=== PATIENT | female | born 1940 | race Two or more races ===

== ENCOUNTER 2019-06-24 19:06 | Emergency (ER) | payer MEDICAID, MEDICARE ==
[~2019-06-24] VITALS: Ht 152.4 cm; Wt 72.6 kg
[2019-06-24] MEDS ORDERED: ALBUTEROL SULF 2.5 MG/0.5ML(0.5%) NEB SOLN HHN STA ×2 (19:25→23:11)
[2019-06-24] MEDS ORDERED: IPRATROPIUM BROM 0.5 MG/2.5ML INH SOL NEB ONE ×2 (19:30→23:15)
[2019-06-24 23:34] LABS: Basophils # (auto) 0.1 uL; Basophils % (auto) 1.2 % (0.0-2.0); Eosinophils # (auto) 0.7 uL; Eosinophils % (auto) 11.1 % (0.0-7.0); Hematocrit 42.2 % (36.0-46.0); Hemoglobin 13.9 g/dL (12.2-16.2); Lymphocytes # (auto) 2.6 uL; Lymphocytes % (auto) 42.1 % (10.0-50.0); Mean Corpuscular Hemoglobin 29.3 pg (28.0-32.0); Mean Corpuscular Hgb Conc. 33.1 g/dL (32.0-36.0); Mean Corpuscular Volume 88.5 fL (80.0-100.0); Monocytes # (auto) 0.6 uL; Monocytes % (auto) 10.2 % (0.0-12.0); Neutrophils # (auto) 2.2 uL; Neutrophils % (auto) 35.4 % (37.0-80.0); Nucleated Red Blood Cells % 0.1 %; Platelet Count (auto) 248 10^3/uL (140-450); Red Blood Cells 4.77 10^6/uL (4.0-5.20); Red Cell Distribution Width 14.1 % (11.8-14.3); White Blood Cell 6.2 10^3/uL (4.4-10.8)
[2019-06-24] MEDS ORDERED: methylPREDNISolone SOD SUCC 125 MG/2 ML VL IV ONE (23:45)
[2019-06-24 23:50] LABS: INR 1.04 (0.9-1.15); Partial Thromboplastin Time 39.3 sec (23.64-32.05)
[2019-06-24 23:57] LABS: Albumin 3.5 g/dL (3.4-5.0); Anion Gap 7 (5-15); Blood Urea Nitrogen 18 mg/dL (7-18); Calcium 8.9 mg/dL (8.5-10.1); Carbon Dioxide 26 mmol/L (21-32); Chloride 109 mmol/L (98-107); Glucose 100 mg/dL (74-106); Potassium 3.8 mmol/L (3.5-5.1); Sodium 142 mmol/L (136-145)
[2019-06-24 23:59] LABS: Alanine Aminotransferase 23 U/L (13-56); Aspartate Aminotransferase 21 U/L (15-37); GFR African American 96 mL/min; GFR Non-African American 80 mL/min
[2019-06-25 00:03] LABS: Alkaline Phosphatase 68 U/L (45-117); Bilirubin, Total 0.3 mg/dL (0.2-1.0); Total Protein 6.9 g/dL (6.4-8.2)
[2019-06-25] MEDS ORDERED: IOHEXOL 350 MG/ML 100ML IJ ONE (02:08)
[2019-06-25 03:17] VITALS: BP 135/63
== END 2019-06-25 03:47 | disposition home or self-care (01) ==
LOC: ER 19:06 → MERGE 19:06 → ER 06-25 03:47
DX: J44.1 Chronic obstructive pulmonary disease with (acute) exacerbation (principal); J01.00 Acute maxillary sinusitis, unspecified
CPT/HCPCS: 36415; 71046; 71275; 80053; 83880; 84484; 85025; 85379; 85610; 85730; 93005; 94640; 96374; 99284; J2930; J7611; J7644; Q9967

== ENCOUNTER 2019-09-01 19:42 | Inpatient (IN) | payer MEDICAID ==
[~2019-09-01] VITALS: Ht 154.9 cm; Wt 75.2 kg
[2019-09-01] MEDS ORDERED: ETOMIDATE (2MG/ML) 20ML VIAL IV ONE (20:23)
[2019-09-01] MEDS ORDERED: SUCCINYLCHOLINE CHLORIDE 20 MG/ML 10ML VIAL IV ONE (20:23)
[2019-09-01] MEDS ORDERED: FUROSEMIDE 40 MG/4 ML VIAL IV ONE (20:30)
[2019-09-01] MEDS ORDERED: ONDANSETRON HCL 4 MG/2 ML VIAL IV ONE (20:30)
[2019-09-01 20:41] LABS: Basophils # (auto) 0 uL; Basophils % (auto) 0.5 % (0.0-2.0); Eosinophils # (auto) 0.2 uL; Eosinophils % (auto) 2.5 % (0.0-7.0); Hematocrit 49.7 % (36.0-46.0); Hemoglobin 16.3 g/dL (12.2-16.2); Lymphocytes # (auto) 1.1 uL; Lymphocytes % (auto) 13.6 % (10.0-50.0); Mean Corpuscular Hemoglobin 29.1 pg (28.0-32.0); Mean Corpuscular Hgb Conc. 32.9 g/dL (32.0-36.0); Mean Corpuscular Volume 88.6 fL (80.0-100.0); Monocytes # (auto) 0.7 uL; Monocytes % (auto) 8.7 % (0.0-12.0); Neutrophils # (auto) 6.1 uL; Neutrophils % (auto) 74.7 % (37.0-80.0); Nucleated Red Blood Cells % 0.1 %; Platelet Count (auto) 290 10^3/uL (140-450); White Blood Cell 8.2 10^3/uL (4.4-10.8)
[2019-09-01 20:48] LABS: INR 1.02 (0.9-1.15); Partial Thromboplastin Time 37.7 sec (23.64-32.05)
[2019-09-01 20:54] LABS: Alanine Aminotransferase 21 U/L (13-56); Albumin 3.5 g/dL (3.4-5.0); Anion Gap 7 (5-15); Aspartate Aminotransferase 20 U/L (15-37); Blood Urea Nitrogen 20 mg/dL (7-18); Calcium 9.1 mg/dL (8.5-10.1); Carbon Dioxide 27 mmol/L (21-32); Chloride 107 mmol/L (98-107); GFR African American 81 mL/min; GFR Non-African American 67 mL/min; Glucose 119 mg/dL (74-106); Potassium 3.8 mmol/L (3.5-5.1); Sodium 141 mmol/L (136-145); Total Protein 6.7 g/dL (6.4-8.2)
[2019-09-01 20:56] LABS: Alkaline Phosphatase 63 U/L (45-117); Bilirubin, Total 0.3 mg/dL (0.2-1.0)
[2019-09-01] MEDS ORDERED: ALBUTEROL SULF 2.5 MG/0.5ML(0.5%) NEB SOLN NEB PRN (21:30)
[2019-09-01] MEDS ORDERED: cloNIDine HCL 0.1 MG TAB PO PRN (21:30)
[2019-09-01] MEDS ORDERED: NITROGLYCERIN 0.4 MG SL TAB SL PRN (21:30)
[2019-09-01] MEDS ORDERED: MORPHINE SULF INJ 2 MG/ML SYRINGE 1ML IV PRN (21:30)
[2019-09-01] MEDS ORDERED: TEMAZEPAM 15 MG CAP PO PRN (21:30)
[2019-09-01] MEDS ORDERED: ONDANSETRON HCL 4 MG/2 ML VIAL IV PRN (21:30)
[2019-09-01] MEDS ORDERED: ACETAMINOPHEN 325 MG TAB PO PRN (21:30)
[2019-09-01] MEDS: CARVEDILOL 3.125 MG TAB PO SCH (23:11)
[2019-09-01] MEDS: FAMOTIDINE 20 MG TAB PO SCH (23:12)
[2019-09-01] MEDS ORDERED: diphenhdrAMINE HCL 50 MG/1 ML VL IV ONE (23:30)
[2019-09-02] VITALS (8 sets, daily range): BP systolic 93–129; BP diastolic 47–73
[2019-09-02 00:31] LABS: Urine Bacteria FEW /hpf (None Seen); Urine Blood 1+ /uL (Negative); Urine Hyaline Cast FEW /lpf (0 - 2); Urine Mucus FEW (None Seen); Urine Specific Gravity 1.025 (1.001-1.035)
--- NOTE | 2019-09-02 00:33 | NUR ---
Telemetry admit from ER BEBETO MEIER V admitted to Telemetry unit after SBAR received. Patient oriented to CEFERINO RUIZ RN primary RN, unit, room, bed, and unit policies regarding patient care and visiting hours. Patient now on continuous telemetry monitoring, tele box #63 and telemetry reading on arrival to unit is NSR. Patient placed on bedside oxygen, weighed by bedscale and encouraged to call if they need something. All questions and concerns addressed, patient verbalized understanding. Note: BED ALARM IS ON AND CALL [facility]DEL[facility] WITHIN REACH.
[2019-09-02 00:34] LABS: Urine WBC 4 /hpf (0 - 5)
--- NOTE | 2019-09-02 00:59 | NUR ---
CALLED ED TO FIND OUT REGARDING PATIENT'S BAG OF MEDICATION, PER ED RN, NO BAG OF MEDICATION WAS SEEN. WILL CALL THE FLOOR IF PATIENT'S BAG IS FOUND.
[2019-09-02 05:53] LABS: Basophils # (auto) 0 uL; Basophils % (auto) 0.5 % (0.0-2.0); Eosinophils # (auto) 0.3 uL; Eosinophils % (auto) 4.4 % (0.0-7.0); Hematocrit 46.9 % (36.0-46.0); Hemoglobin 15.5 g/dL (12.2-16.2); Lymphocytes # (auto) 0.8 uL; Lymphocytes % (auto) 13.2 % (10.0-50.0); Mean Corpuscular Hemoglobin 29.2 pg (28.0-32.0); Mean Corpuscular Volume 88.4 fL (80.0-100.0); Monocytes # (auto) 0.7 uL; Monocytes % (auto) 12.6 % (0.0-12.0); Neutrophils % (auto) 69.3 % (37.0-80.0); Nucleated Red Blood Cells % 0.1 %; Platelet Count (auto) 280 10^3/uL (140-450); Red Blood Cells 5.31 10^6/uL (4.0-5.20); Red Cell Distribution Width 14.2 % (11.8-14.3); White Blood Cell 5.7 10^3/uL (4.4-10.8)
[2019-09-02 06:13] LABS: Anion Gap 9 (5-15); BUN/Creatinine Ratio 29.3; Blood Urea Nitrogen 27 mg/dL (7-18); Calcium 8.2 mg/dL (8.5-10.1); Carbon Dioxide 23 mmol/L (21-32); Chloride 108 mmol/L (98-107); GFR African American 76 mL/min; GFR Non-African American 63 mL/min; Glucose 121 mg/dL (74-106); Potassium 4.3 mmol/L (3.5-5.1); Sodium 140 mmol/L (136-145)
--- NOTE | 2019-09-02 06:35 | NUR ---
UNABLE TO COMPLETE MEDICATION RECONCILIATION, PATIENT CANNOT REMEMBER MEDICATIONS. PATIENT WILL ASK DAUGHTER TO BRING MEDICATIONS FROM HOME.
--- NOTE | 2019-09-02 08:00 | NUR ---
Opening Shift Note Assumed care of patient, awake and alert. No S/S of distress/SOB or pain. Instructed on POC and to call for assist PRN, will continue to monitor for changes Q1hr and PRN.
[2019-09-02] MEDS: CARVEDILOL 3.125 MG TAB PO SCH ×2 (09:41→22:00)
[2019-09-02] MEDS: ENOXAPARIN SOD 40 MG/0.4 ML SYRINGE SC SCH (09:41)
[2019-09-02] MEDS: FAMOTIDINE 20 MG TAB PO SCH ×2 (09:41→22:53)
--- NOTE | 2019-09-02 11:27 | NUR ---
Respiratory note: PT ASSESSED FOR PRN MED NEB TX. POX 95% ON 2L NC, HR 71, RR 14. B/S ARE CLEAR THROUGHOUT. MED NEB TX IS NOT INDICATED AT THIS TIME. PT APPEARS TO BE BREATHING COMFORTABLY.
[2019-09-02] MEDS ORDERED: ASPirin 81 mg TAB PO ONE (12:15)
--- NOTE | 2019-09-02 12:49 | NUR ---
CHEST PAIN Patient reported 5/10 chest pain in the center of her chest and reported that it felt like pressure. A 12 lead EKG was done and showed normal sinus rhythm and a normal ECG. The patient denied having chest pain after the 12 lead EKG was done. The patient stated that she has some chest pain sometimes when she takes deep breaths. Will continue to monitor patient.
[2019-09-02 13:09] LABS: Cholesterol 178 mg/dL (< 200); Triglycerides 101 mg/dL (< 150)
[2019-09-02 13:10] LABS: HDL Cholesterol 50 mg/dL (40-59); LDL Cholesterol 116 mg/dL (< 100)
--- NOTE | 2019-09-02 15:10 | NUR ---
Report Received report received for Danae NOVAK. Patient currently awake and alert laying down in bed. Family is at bedside. Patient is on 3 L NC with No S/S of distress/SOB or pain at this time. Patient and family educated on fall precautions. Bed is in lowest position, wheels are locked, side rails up x2, and call light is within reach. Encouraged patient to call as needed. Will continue to monitor changes q1hr and PRN.
--- NOTE | 2019-09-02 17:14 | NUR ---
Report given Patient awake and alert laying in bed. Family is at bedside. Patient is on 3 L NC with even and unlabored respirations. No S/S of distress/SOB or pain. Care endorsed to Will RN.
--- NOTE | 2019-09-02 19:05 | NUR ---
Respiratory note: ASSESSED PT FOR PRN MED NEB AT THIS TIME, PT DENIES SOB AT THIS TIME, NO RESP DISTRESS NOTED, NO TX INDICATED. PULSE OX 91% ON RA, PLACED PT ON 2LNC AT THIS TIME, HR 79, RR 18, BILATERAL BS DIMINISHED.
--- NOTE | 2019-09-02 19:30 | NUR ---
Opening Shift Note Assumed care of patient, awake and alert. No S/S of distress/SOB or pain. Family at bedside. Instructed on POC and to call for assist PRN, will continue to monitor for changes Q1hr and PRN.
[2019-09-02] MEDS ORDERED: ATORVASTATIN 20 MG TAB PO SCH (22:00)
[2019-09-03 04:54] VITALS: BP 113/52
--- NOTE | 2019-09-03 07:29 | NUR ---
Opening Shift Note Assumed care of patient, patient awake and alert laying down in bed. Patient is on 2 L NC with even and unlabored respirations. No S/S of distress/SOB or pain at this time. Bed is in lowest position, wheels are locked, side rails up x2, and call light is within reach. patient educated regarding fall precaution. Patient verbalized understanding. Instructed on POC and to call for assist PRN, will continue to monitor for changes Q1hr and PRN.
--- NOTE | 2019-09-03 07:44 | NUR ---
Respiratory note: PT IS AWAKE, AND ALERT. NO RESPIRATORY DISTRESS NOTED. SPO2 92% ON 2LNC, HR 73, RR 16, BS CLEAR T/O. PRN MEDNEB TX NOT INDICATED. PT INFORMED TO PUSH CALL BUTTON IF INCREASED WOB, SOB, OR WHEEZING OCCURS.
[2019-09-03 07:45] LABS: Basophils # (auto) 0 uL; Basophils % (auto) 0.5 % (0.0-2.0); Eosinophils # (auto) 0.3 uL; Eosinophils % (auto) 7.4 % (0.0-7.0); Hematocrit 40.9 % (36.0-46.0); Hemoglobin 13.7 g/dL (12.2-16.2); Lymphocytes # (auto) 1.6 uL; Lymphocytes % (auto) 35.7 % (10.0-50.0); Mean Corpuscular Hemoglobin 29.8 pg (28.0-32.0); Mean Corpuscular Hgb Conc. 33.6 g/dL (32.0-36.0); Mean Corpuscular Volume 88.6 fL (80.0-100.0); Monocytes # (auto) 0.5 uL; Monocytes % (auto) 11.1 % (0.0-12.0); Neutrophils % (auto) 45.3 % (37.0-80.0); Platelet Count (auto) 224 10^3/uL (140-450); Red Blood Cells 4.62 10^6/uL (4.0-5.20); White Blood Cell 4.4 10^3/uL (4.4-10.8)
[2019-09-03 08:05] LABS: Albumin 2.8 g/dL (3.4-5.0); BUN/Creatinine Ratio 26.6; Calcium 8.1 mg/dL (8.5-10.1); Potassium 3.8 mmol/L (3.5-5.1)
[2019-09-03 08:08] LABS: Bilirubin, Total 0.5 mg/dL (0.2-1.0); Total Protein 5.8 g/dL (6.4-8.2)
[2019-09-03 09:10] VITALS: BP_SYST 129; BP_SYST 89; BP_DIAS 52; BP_DIAS 68
[2019-09-03] MEDS ORDERED: ASPirin 81 mg TAB PO SCH (10:00)
[2019-09-03] MEDS: FAMOTIDINE 20 MG TAB PO SCH (10:17)
[2019-09-03] MEDS: CARVEDILOL 3.125 MG TAB PO SCH (10:17)
[2019-09-03] MEDS: ENOXAPARIN SOD 40 MG/0.4 ML SYRINGE SC SCH (10:18)
--- NOTE | 2019-09-03 11:30 | NUR ---
DR. MINA AT BEDSIDE LEOPOLDO MATTHEWS AT BEDSIDE. RECEIVED D/C ORDER. DR. COOLEY PUT ORDER IN. WILL WAIT FOR ORDER. PATIENT CURRENTLY AWAKE AND ALERT WITH NO S/S OF DISTRESS/SOB OR PAIN NOTED. WILL CONTINUE TO MONITOR Q1H AND PRN.
[2019-09-03 13:00] VITALS: BP 95/45
--- NOTE | 2019-09-03 15:55 | NUR ---
Patient Discharged Discharge instructions given as ordered. Encourage to follow up with PMD as instructed and cardiology as ordered. All questions and concerns addressed. Patient and family verbalized understanding. Medication reconciliation form completed and copy given to patient. IV removed with catheter intact, pressure dressing applied, patient tolerated well. Telemetry unit returned to ICU. Patient taken to vehicle via wheelchair with all personal belongings, accompanied by staff and family member. No S/S of distress/SOB noted at time of departure.
== END 2019-09-03 15:55 | disposition home or self-care (01) | DRG 204 ==
LOC: ER 19:51 → TELE 19:52 → TELE-WESTW 23:14
PROVIDERS: ADMIT Nurse Practitioner; ATTEND Internal Medicine
DX: R55 Syncope and collapse (principal); I50.33 Acute on chronic diastolic (congestive) heart failure; E66.9 Obesity, unspecified; T78.40XA Allergy, unspecified, initial encounter; X58.XXXA Exposure to other specified factors, initial encounter; J45.909 Unspecified asthma, uncomplicated; I10 Essential (primary) hypertension; Z90.710 Acquired absence of both cervix and uterus; Z68.31 Body mass index [BMI] 31.0-31.9, adult
CPT/HCPCS: 36415; 36600; 71045; 80048; 80053; 80061; 81001; 82805; 83036; 83735; 83880; 84439; 84443; 84484; 85025; 85610; 85730; 93005; 93306; 93886; 96374; 96375; G0378; J0330; J2405